=== PATIENT | male | born 1995 | race Caucasian/White ===

== ENCOUNTER 2021-05-08 20:32 | Emergency (ER) | payer OTHER ==
[~2021-05-08 20:32] MED LIST: BUSPAR5 MG PO; COZAAR 25MG TAB25 MG PO; LEXAPRO20 MG PO; MEDROL 4MG DOSEP4 MG PO; XANAX0.25 MG PO
[2021-05-08 21:27] LABS: BASOPHIL 0.5 % (0-2); EOSINOPHIL 1.3 % (0-5); HCT 42.6 % (42.0-52.0); HGB 15.1 g/dl (13.2-18.0); MCH 30.8 pg (25.0-31.0); MCHC 35.4 g/dL (32.0-36.0); MCV 86.8 fL (78.0-100.0); NRBC 0; PLT 263 K/uL (150-400); RBC 4.91 M/uL (4.70-6.00); RDW 11.9 % (11.5-14.0); WBC 8.2 K/uL (4.0-10.5)
[2021-05-08 21:44] LABS: BUN/CREAT RATIO (CALC) 18.3 RATIO; CREATININE 0.82 mg/dL (0.67-1.17); POTASSIUM 4.2 mmol/L (3.5-5.1)
[2021-05-08] MEDS ORDERED: CEFDINIR300 MG PO (21:49)
[2021-05-08] MEDS ORDERED: FIORICET1 EACH PO (21:49)
== END 2021-05-08 22:25 | disposition home or self-care (01) ==
LOC: FER 20:32
PROVIDERS: Emergency Medicine Emergency Medical Services
DX: R51.9 Headache, unspecified (principal); I10 Essential (primary) hypertension; F17.200 Nicotine dependence, unspecified, uncomplicated; Z79.82 Long term (current) use of aspirin
CPT/HCPCS: 36415; 80048; 85025; J0696; J1100; J1885; J7030